=== PATIENT | female | born 1975 | race Caucasian/White ===

== ENCOUNTER 2022-04-20 18:36 | Emergency (ER) | payer OTHER ==
[2022-04-20 19:08] VITALS: BP 115/76; PULSE 80; RESP 18; TEMP 98.2; BMI 25.7
[2022-04-20] MEDS ORDERED: IBUPROFEN 600 MG TABLET (FP) PO ONE ×2 (19:32→19:36)
[2022-04-20] MEDS ORDERED: LIDOCAINE 5% TOPICAL PATCH TP ONE (19:32)
[2022-04-20] MEDS ORDERED: CYCLOBENZAPRINE HCL 10 MG TABLET (FP) PO ONE (19:32)
[2022-04-20] MEDS ORDERED: ACETAMINOPHEN 500 MG TABLET (FP) PO ONE (19:32)
[2022-04-20] MEDS ORDERED: ACETAMINOPHEN 500 MG TABLET (FP) ONE (19:36)
[2022-04-20] MEDS ORDERED: LIDOCAINE 5% TOPICAL PATCH ONE (19:36)
[2022-04-20] MEDS ORDERED: CYCLOBENZAPRINE HCL 10 MG TABLET (FP) ONE (19:36)
[2022-04-20] MEDS ORDERED: LIDOCAINE PATCH REMOVAL MC SCH (22:00)
== END 2022-04-20 22:03 | disposition home or self-care (01) ==
LOC: JER 18:36
DX: M54.2 Cervicalgia (principal)
CPT/HCPCS: 70450-TC; 72125-TC; 99284-25